=== PATIENT | female | born 1955 | race Caucasian/White ===

== ENCOUNTER 2017-02-22 13:10 | Emergency (ER) | payer BC ==
[2017-02-22] MEDS ORDERED: Sodium Chloride 0.9% 10 ML Syringe FLUSH PRN (14:08)
[2017-02-22] MEDS ORDERED: Acetaminophen/HYDROcodone 325-5 MG Tab PO ONE (14:10)
--- NOTE | 2017-02-22 14:10 | EDM.PDOC ---
[id number] CHEST PAIN Time Seen by Provider: 02/22/17 13:27 Source of Information: Reports: Patient, Family History Limitations: Reports: No Limitations - History of Present Illness INITIAL COMMENTS - FREE TEXT/NARRATIVE: Patient presents to the emergency room with left sided chest pain. It is lower part of the left side and it appears to be involving the third and fourth ribs. The patient had problems in the past with this type of pain. Her previous cardiac workups have been negative. The patient has been treated for reflux. 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: Musculoskeletal History: Reports: Fracture Other Musculoskeletal History: l wrist Dermatologic History: Reports: Eczema - Infectious Disease History Infectious Disease History: Reports: Chicken Pox, Measles, Mumps, Shingles - Past Surgical History GI Surgical History: Reports: Colonoscopy, EGD Female Surgical History: Reports: Hysterectomy Social & Family History - Tobacco Use Smoking Status *Q: Never Smoker Second Hand Smoke Exposure: No - Caffeine Use Caffeine Use: Reports: Coffee, Soda - Recreational Drug Use Recreational Drug Use: No ED ROS GENERAL - Review of Systems Review Of Systems: See Below HEENT: Reports: No Symptoms Respiratory: Reports: Pleuritic Chest Pain. Denies: Shortness of Breath, Wheezing, Cough, Sputum, Hemoptysis Cardiovascular: Reports: Chest Pain. Denies: Blood Pressure Problem, Dyspnea on Exertion, Orthopnea, Palpitations, Syncope Endocrine: Reports: No Symptoms GI/Abdominal: Reports: No Symptoms : Reports: No Symptoms Musculoskeletal: Reports: Hand Pain, Joint Pain, Joint Swelling, Muscle Stiffness Skin: Reports: Dryness, Pruritis, Erythema Neurological: Reports: Dizziness, Headache Psychiatric: Reports: Anxiety Hematologic/Lymphatic: Reports: Easy Bruising Immunologic: Reports: No Symptoms ED EXAM, GENERAL - Physical Exam Exam: See Below Exam Limited By: No Limitations General Appearance: Alert, WD/WN, No Apparent Distress Eye Exam: Bilateral Eye: Normal Inspection Ears: Normal External Exam, Normal Canal, Hearing Grossly Normal Nose: Normal Inspection Head: Atraumatic Neck: Normal Inspection, Supple Respiratory/Chest: No Respiratory Distress, Lungs Clear. No: Chest Non-Tender, Respiratory Distress, Rales, Rhonchi, Wheezing Cardiovascular: Normal Peripheral Pulses, Regular Rate, Rhythm GI/Abdominal: Normal Bowel Sounds, Non-Tender (Female) Exam: Normal External Exam Back Exam: Normal Inspection Extremities: Normal Inspection Neurological: Alert, Oriented Psychiatric: Anxious Skin Exam: Warm, Dry, Intact, Normal Color Lymphatic: No Adenopathy Course - Vital Signs Last Recorded V/S: Last Vital Signs Temp 96.8 F 02/22/17 16:20 Pulse 57 L 02/22/17 17:20 Resp 16 02/22/17 17:20 BP 126/82 02/22/17 17:20 Pulse Ox 96 02/22/17 17:20 - Orders/Labs/Meds Labs: Laboratory Tests 02/22/17 02/22/17 02/22/17 Range/Units 14:23 14:23 14:23 WBC 8.9 (4.5-11.0) K/uL RBC 4.53 (3.30-5.50) M/uL Hgb 13.2 (12.0-15.0) g/dL Hct 39.4 (36.0-48.0) % MCV 87 (80-98) fL MCH 29 (27-31) pg MCHC 34 (32-36) % Plt Count 215 (150-400) K/uL Neut % (Auto) 72 H (36-66) % Lymph % (Auto) 19 L (24-44) % [place] % (Auto) 7 H (2-6) % Eos % (Auto) 2 (2-4) % Baso % (Auto) 1 (0-1) % PT 10.9 (9.5-12.0) sec INR 1.03 (0.80-1.20) APTT 30.0 (27.0-36.0) sec Sodium 140 (140-148) mmol/L Potassium 3.7 (3.6-5.2) mmol/L Chloride 101 (100-108) mmol/L Carbon Dioxide 30 (21-32) mmol/L Anion Gap 8.9 (5.0-14.0) mmol/L BUN 22 H (7-18) mg/dL Creatinine 0.8 (0.6-1.0) mg/dL Est Cr Clr Drug Dosing 76.20 mL/min Estimated GFR (MDRD) > 60 (>60) Glucose 97 (74-106) mg/dL Calcium 8.8 (8.5-10.1) mg/dL Phosphorus 3.8 (2.5-4.9) mg/dL Magnesium 2.1 (1.8-2.4) mg/dL Total Bilirubin 0.3 (0.2-1.0) mg/dL AST 31 (15-37) U/L ALT 39 (12-78) U/L Alkaline Phosphatase 68 (46-116) U/L Creatine Kinase 89 (26-192) U/L Troponin I < 0.017 (0.000-0.056) ng/mL Total Protein 7.2 (6.4-8.2) g/dL Albumin 3.9 (3.4-5.0) g/dL Globulin 3.3 (2.3-3.5) g/dL Albumin/Globulin Ratio 1.2 (1.2-2.2) Urine Color Urine Appearance Urine pH (4.5-8.0) Ur Specific [place] (1.008-1.030) Urine Protein (NEGATIVE) mg/dL Urine Glucose (UA) (NEGATIVE) mg/dL Urine Ketones (NEGATIVE) mg/dL Urine Occult Blood (NEGATIVE) Urine Nitrite (NEGATIVE) Urine Bilirubin (NEGATIVE) Urine Urobilinogen (NORMAL) mg/dL Ur Leukocyte Esterase (NEGATIVE) Urine RBC (0-5) Urine WBC (0-5) Ur Epithelial Cells Amorphous Sediment Urine Bacteria Urine Mucus 02/22/17 Range/Units 14:45 WBC (4.5-11.0) K/uL RBC (3.30-5.50) M/uL Hgb (12.0-15.0) g/dL Hct (36.0-48.0) % MCV (80-98) fL MCH (27-31) pg MCHC (32-36) % Plt Count (150-400) K/uL Neut % (Auto) (36-66) % Lymph % (Auto) (24-44) % [place] % (Auto) (2-6) % Eos % (Auto) (2-4) % Baso % (Auto) (0-1) % PT (9.5-12.0) sec INR (0.80-1.20) APTT (27.0-36.0) sec Sodium (140-148) mmol/L Potassium (3.6-5.2) mmol/L Chloride (100-108) mmol/L Carbon Dioxide (21-32) mmol/L Anion Gap (5.0-14.0) mmol/L BUN (7-18) mg/dL Creatinine (0.6-1.0) mg/dL Est Cr Clr Drug Dosing mL/min Estimated GFR (MDRD) (>60) Glucose (74-106) mg/dL Calcium (8.5-10.1) mg/dL Phosphorus (2.5-4.9) mg/dL Magnesium (1.8-2.4) mg/dL Total Bilirubin (0.2-1.0) mg/dL AST (15-37) U/L ALT (12-78) U/L Alkaline Phosphatase (46-116) U/L Creatine Kinase (26-192) U/L Troponin I (0.000-0.056) ng/mL Total Protein (6.4-8.2) g/dL Albumin (3.4-5.0) g/dL Globulin (2.3-3.5) g/dL Albumin/Globulin Ratio (1.2-2.2) Urine Color Yellow Urine Appearance Clear Urine pH 5.0 (4.5-8.0) Ur Specific [place] 1.010 (1.008-1.030) Urine Protein Negative (NEGATIVE) mg/dL Urine Glucose (UA) Normal (NEGATIVE) mg/dL Urine Ketones Negative (NEGATIVE) mg/dL Urine Occult Blood Negative (NEGATIVE) Urine Nitrite Negative (NEGATIVE) Urine Bilirubin Negative (NEGATIVE) Urine Urobilinogen Normal (NORMAL) mg/dL Ur Leukocyte Esterase Negative (NEGATIVE) Urine RBC 0-5 (0-5) Urine WBC 0-5 (0-5) Ur Epithelial Cells Rare Amorphous Sediment Not seen Urine Bacteria Few Urine Mucus Not seen Meds: Medications Discontinued Medications Generic Name Dose Route Start Last Admin Trade Name Freq PRN Reason Stop Dose Admin Hydrocodone Bitart/Acetaminophen 2 tab 02/22/17 14:10 02/22/17 14:27 [place] 325-5 Mg PO 02/22/17 14:11 2 tab ONETIME ONE Administration Sodium Chloride 1,000 mls @ 125 mls/hr 02/22/17 14:15 02/22/17 14:21 Normal Saline IV 125 mls/hr ASDIRECTED DENG Administration Sodium Chloride 10 ml 02/22/17 14:08 Saline Flush FLUSH ASDIRECTED PRN Keep Vein Open Departure - Departure Time of Disposition: 17:06 Disposition: Home, Self-Care 01 Condition: Good Clinical Impression: Costochondritis, Reflux esophagitis Raynaud disease Qualifiers: Raynaud?s-associated gangrene presence: without gangrene Qualified Code(s): I73.00 - Raynaud's syndrome without gangrene Instructions: Indigestion, [id number], Raynaud Phenomenon, Chest Wall Pain, [id number] Referrals: PCP,None [Primary Care Provider] - Forms: ED Department Discharge Additional Instructions: Patient seen in the emergency room and evaluated for the left-sided chest wall pain involving especially the third and fourth ribs on the left. The patient has a history of Raynaud's, costochondritis and probable reflux. The patient's evaluation today failed to show cardiac injury. The patient's problems appear to be inflammation of the muscle skeletal system involving the chest wall. Patient placed on a trial of prednisone. Prednisone 20 mg daily for the first 5 days, then 10 mg daily for the next 14 days. Follow with primary care physician to review the effects of prednisone at all and the symptomatology of the chest wall pain. Disposition is to home - Problem List & Annotations (1) Costochondritis SNOMED Code(s): 33990164 Code(s): M94.0 - CHONDROCOSTAL JUNCTION SYNDROME [TIETZE] Status: Acute Priority: Medium (2) Raynaud disease SNOMED Code(s): 474800368 Code(s): I73.00 - RAYNAUD'S SYNDROME WITHOUT GANGRENE Status: Acute Priority: Medium Qualifiers: Raynaud?s-associated gangrene presence: without gangrene Qualified Code(s) : I73.00 - Raynaud's syndrome without gangrene (3) Reflux esophagitis SNOMED Code(s): 350634860 Code(s): K21.0 - GASTRO-ESOPHAGEAL REFLUX DISEASE WITH ESOPHAGITIS Status: Acute Priority: Medium - Problem List Review Problem List Initiated/Reviewed/Updated: Yes
[2017-02-22] MEDS ORDERED: Sodium Chloride 0.9% 1,000 ML IV SCH (14:15)
[2017-02-22 17:23] VITALS: BP 126/82
--- NOTE | 2017-02-25 10:32 | CR ---
Chest 2V HISTORY: No Clinical Info FINDINGS: Heart size within normal limits. Pulmonary vasculature within normal limits. No evidence f or focal consolidation or cardiopulmonary process. IMPRESSION: No radiographic evidence for acute cardiopulmonary process.
== END 2017-02-22 17:23 | disposition home or self-care (01) ==
LOC: JP.ED 13:10
DX: M94.0 Chondrocostal junction syndrome [Tietze] (principal); K21.0 Gastro-esophageal reflux disease with esophagitis; I73.00 Raynaud's syndrome without gangrene; Z90.710 Acquired absence of both cervix and uterus; Z88.8 Allergy status to other drugs, medicaments and biological substances; Z79.899 Other long term (current) drug therapy
CPT/HCPCS: 36415; 71020; 80053; 81001; 82550; 83735; 84100; 84484; 85025; 85610; 85730; 93005; 99285; A9270; J7040

== ENCOUNTER 2019-12-01 07:37 | Emergency (ER) | payer MEDICARE, BC ==
[2019-12-01 07:54] VITALS: BP 142/83; PULSE 77
--- NOTE | 2019-12-01 07:57 | EDM.PDOC ---
ED HPI GENERAL MEDICAL PROBLEM - General Chief Complaint: Upper Extremity Injury/Pain Stated Complaint: LT SHOULDER PAIN Time Seen by Provider: 12/01/19 08:05 Source of Information: Reports: Patient, Significant Other History Limitations: Reports: No Limitations - History of Present Illness Onset: Gradual Onset Date: 11/29/19 Duration: Day(s): (2), Constant Location: Reports: Upper Extremity, Left, Radiates to (Anterior chest and L arm) Quality: Reports: Ache, Dull Severity: Moderate (8/10) Improves with: Reports: None Worsens with: Denies: Breathing, Eating, Rest, Movement Context: Reports: Other (One week post endoscopy. ) Associated Symptoms: Reports: Chest Pain. 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 Left Shoulder Pain Score (Numeric/FACES): 8 - Related Data Allergies Allergy/AdvReac Type Severity Reaction Status Date / Time metronidazole [From Flagyl] Allergy Rash Verified 12/01/19 07:57 Home Meds: Home Meds Hydroxychloroquine Sulfate [Plaquenil] 200 mg PO Q48H 01/13/16 [History] Cyclobenzaprine [Flexeril] 10 mg PO TID PRN 5 Days #15 tab 12/01/19 [Rx] Omeprazole 20 mg PO DAILY 12/01/19 [History] SUMAtriptan [Imitrex] 6 mg IM ASDIRECTED PRN 12/01/19 [History] Turmeric-Turmeric 1 cap PO DAILY 12/01/19 [History] hydroCHLOROthiazide [Hydrochlorothiazide] 25 mg PO DAILY 12/01/19 [History] lisinopriL [Lisinopril] 10 mg PO DAILY 12/01/19 [History] Past Medical History HEENT History: Reports: Impaired Vision Cardiovascular History: Reports: Hypertension. 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 Denies: Congestion Mouth/Throat: Denies: Throat Swelling, Difficulty Swallowing Respiratory: Denies: Shortness of Breath, Wheezing, Pleuritic Chest Pain, Cough Cardiovascular: Reports: Chest Pain. Denies: Irregular Heart Rate, Palpitations , Syncope GI/Abdominal: Denies: Abdominal Pain Musculoskeletal: Reports: Shoulder Pain (Left) Skin: Denies: Pallor, Diaphoresis Neurological: Denies: Confusion, Headache, Trouble Speaking Psychiatric: Denies: Confusion ED EXAM, GENERAL - Physical Exam Exam: See Below Exam Limited By: No Limitations General Appearance: Alert, WD/WN, No Apparent Distress, Obese Eye Exam: Bilateral Eye: EOMI, Normal Inspection, PERRL Nose: Normal Inspection Throat/Mouth: Normal Inspection, Normal Voice, No Airway Compromise Head: Atraumatic, Normocephalic Neck: Normal Inspection, Non-Tender, Full Range of Motion Respiratory/Chest: Lungs Clear, Normal Breath Sounds, No Accessory Muscle Use, Other (tenderness on palpation of L medial scapular area) Cardiovascular: Normal Peripheral Pulses, Regular Rate, Rhythm, No Edema, No JVD , No Murmur GI/Abdominal: Soft, Non-Tender Back Exam: Normal Inspection, Muscle Spasm (on palpation just medial to L scapula) Extremities: Normal Inspection, Normal Range of Motion Neurological: Alert, Oriented Skin Exam: Warm, Dry, Intact Lymphatic: No Adenopathy EKG INTERPRETATION EKG Date: 12/01/19 Time: 08:30 Rhythm: NSR [place]: Normal P-Wave: Present QRS: Other (duration slightly prolonged @ 115ms) ST-T: Normal QT: Normal Course - Vital Signs Last Recorded V/S: Last Vital Signs Temp 35.8 C L 12/01/19 07:56 Pulse 77 12/01/19 07:56 Resp 16 12/01/19 07:56 BP 142/83 H 12/01/19 07:56 Pulse Ox 96 12/01/19 07:56 - Orders/Labs/Meds Orders: Active Orders 24 hr Category Date Time Status EKG Documentation Completion [RC] ASDIRECTED Care 12/01/19 08:18 Active EKG 12 Lead [EK] Routine Ther 12/01/19 08:16 Ordered Labs: Laboratory Tests 12/01/19 12/01/19 12/01/19 Range/Units 08:30 08:30 08:30 WBC 8.5 (4.5-11.0) K/uL RBC 4.84 (3.30-5.50) M/uL Hgb 13.9 (12.0-15.0) g/dL Hct 42.3 (36.0-48.0) % MCV 87 (80-98) fL MCH 29 (27-31) pg MCHC 33 (32-36) % Plt Count 288 (150-400) K/uL D-Dimer, Quantitative < 100 (0.0-400.0) ng/mL Sodium 141 (140-148) mmol/L Potassium 3.8 (3.6-5.2) mmol/L Chloride 102 (100-108) mmol/L Carbon Dioxide 30 (21-32) mmol/L Anion Gap 8.6 (5.0-14.0) mmol/L BUN 15 (7-18) mg/dL Creatinine 0.8 (0.6-1.0) mg/dL Est Cr Clr Drug Dosing 70.72 mL/min Estimated GFR (MDRD) > 60 (>60) Glucose 105 (74-106) mg/dL Calcium 9.1 (8.5-10.1) mg/dL Total Bilirubin 0.3 (0.2-1.0) mg/dL AST 19 (15-37) U/L ALT 29 (12-78) U/L Alkaline Phosphatase 82 (46-116) U/L Troponin I < 0.017 (0.000-0.056) ng/mL Total Protein 7.5 (6.4-8.2) g/dL Albumin 3.9 (3.4-5.0) g/dL Globulin 3.6 H (2.3-3.5) g/dL Albumin/Globulin Ratio 1.1 L (1.2-2.2) Meds: Medications Discontinued Medications Generic Name Dose Route Start Last Admin Trade Name Freq PRN Reason Stop Dose Admin Aspirin 324 mg 12/01/19 08:16 12/01/19 08:22 Aspirin PO 12/01/19 08:17 324 mg ONETIME ONE Administration Departure - Departure Time of Disposition: 09:20 Disposition: Home, Self-Care 01 Condition: Good Clinical Impression: Thoracic back pain Qualifiers: Chronicity: acute Back pain laterality: left Qualified Code(s): M54.6 - Pain in thoracic spine - Discharge Information Prescriptions: Cyclobenzaprine [Flexeril] 10 mg PO TID PRN 5 Days #15 tab PRN Reason: Muscle Spasm Instructions: Thoracic Strain, [id number] Referrals: PCP,None [Primary Care Provider] - Forms: ED Department Discharge Sepsis Event Note - Focused Exam Vital Signs: Vital Signs Temp Pulse Resp BP Pulse Ox 12/01/19 07:56 35.8 C L 77 16 142/83 H 96 12/01/19 07:53 35.8 C L 77 16 142/83 H 96 Date Exam was Performed: 12/01/19 Time Exam was Performed: 09:13 - My Orders Last 24 Hours: My Active Orders 12/01/19 08:16 EKG 12 Lead [EK] Routine 12/01/19 08:18 EKG Documentation Completion [RC] ASDIRECTED - Assessment/Plan Last 24 Hours: My Active Orders 12/01/19 08:16 EKG 12 Lead [EK] Routine 12/01/19 08:18 EKG Documentation Completion [RC] ASDIRECTED
[2019-12-01] MEDS: Aspirin 81 MG Tab.Chew PO ONE (08:22)
--- NOTE | 2019-12-01 09:05 | CRLCR ---
INDICATION: Posterior thoracic pain TECHNIQUE: Chest 2 views COMPARISON: 02/22/2017 FINDINGS: Cardiovascular and mediastinum: Heart size and vasculature are normal in caliber and appearance. Lungs and pleural spaces: Lungs are clear. No sign of infiltrate or mass. No sign of pleural effusion. No pneumothorax. Bones and soft tissues: No significant findings. IMPRESSION: No acute findings and no significant changes from the prior exam. Dictated by Logan Thomas MD @ 12/01/2019 9:03:57 AM Dictated by: Logan Thomas MD @ 12/01/2019 09:04:06 (Electronically Signed)
== END 2019-12-01 09:41 | disposition home or self-care (01) ==
LOC: JP.ED 07:37
DX: M54.6 Pain in thoracic spine (principal); K21.9 Gastro-esophageal reflux disease without esophagitis; I10 Essential (primary) hypertension; Z79.899 Other long term (current) drug therapy
CPT/HCPCS: 36415; 71046; 80053; 84484; 85027; 85379; 93005; 99283; 99285; A9270

== ENCOUNTER 2024-04-11 20:22 | Observation (INO) | payer MEDICARE, BC ==
[2024-04-11] MEDS: HYDROmorphone 1 MG/ML Syringe IM ONE ×2 (20:44→22:05)
[2024-04-11] MEDS: Ondansetron 4 MG Tab.DIS PO ONE (20:44)
[2024-04-11] MEDS ORDERED: Naloxone 0.4 MG/ML SDV IVPUSH PRN ×2 (21:58→22:25)
[2024-04-11] MEDS: Cyclobenzaprine 10 MG Tab PO ONE (22:06)
[2024-04-11] MEDS ORDERED: Ondansetron 4 MG Tab.DIS PO PRN (22:25)
[2024-04-11] MEDS ORDERED: Melatonin 3 MG Tab PO PRN (22:25)
[2024-04-11] MEDS ORDERED: Ondansetron 4 MG/2 ML SDV IV PRN (22:25)
[2024-04-11] MEDS: Sodium Chloride 0.9% 1,000 ML IV SCH (23:08)
[2024-04-11] MEDS: Pantoprazole 40 MG Tab.CR PO ONE (23:21)
[2024-04-12] MEDS: HYDROmorphone 0.5 MG/0.5 ML Syringe IVPUSH PRN (03:45)
[2024-04-12 05:06] LABS: HEMATOCRIT 30.6 % (34.3-46.0); HEMOGLOBIN 10.6 g/dL (11.2-15.5); MEAN CORPUSCULAR HEMOGLOBIN 30.8 pg (31.6-35.5); MEAN CORPUSCULAR HGB CONC 34.6 g/dL (31.6-35.5); RED BLOOD CELL COUNT 3.44 M/uL (3.77-5.24); WHITE BLOOD CELL COUNT,WBC 12.8 K/uL (3.2-11.0)
[2024-04-12 05:28] LABS: A/G RATIO 0.9 (1.2-2.2); ALANINE AMINOTRANSFERASE,ALT 23 U/L (12-78); ALBUMIN 2.9 g/dL (3.4-5.0); ALKALINE PHOSPHATASE 51 U/L (46-116); ASPARTATE AMNIOTRANSFERASE,AST 26 U/L (15-37); BILIRUBIN TOTAL 0.5 mg/dL (0.2-1.0); BLOOD UREA NITROGEN,BUN 17 mg/dL (7-18); CALCIUM 7.9 mg/dL (8.5-10.1); CARBON DIOXIDE,CO2 30 mmol/L (21-32); CHLORIDE,CL 103 mmol/L (100-108); CREATININE 0.7 mg/dL (0.6-1.0); EST CRCL DRUG DOSING (CG) 75.14 mL/min; ESTIMATED GFR 94 mL/min (>60); GLUCOSE RANDOM 143 mg/dL (74-106); POTASSIUM,K 3.8 mmol/L (3.6-5.2); PROTEIN TOTAL,TP 6.1 g/dL (6.4-8.2); SODIUM,NA 138 mmol/L (140-148)
[2024-04-12 05:36] LABS: ANION GAP 8.8 mmol/L (5.0-14.0)
[2024-04-12] MEDS ORDERED: fentaNYL 250 MCG/5 ML SDV ONE ×2 (07:37→09:35)
[2024-04-12] MEDS ORDERED: Succinylcholine 200 MG/10 ML MDV ONE (07:37)
[2024-04-12] MEDS ORDERED: Glycopyrrolate 0.2 MG/ML 5 ML MDV ONE (07:37)
[2024-04-12] MEDS ORDERED: Dexamethasone 4 MG/ML SDV ONE (07:37)
[2024-04-12] MEDS ORDERED: Neostigmine Methylsulfate 10 MG/10 ML MDV ONE (07:37)
[2024-04-12] MEDS ORDERED: Propofol 200 MG/20 ML SDV ONE (07:37)
[2024-04-12] MEDS ORDERED: Rocuronium 50 MG/5 ML Vial ONE (07:37)
[2024-04-12] MEDS ORDERED: Ondansetron 4 MG/2 ML SDV ONE (07:37)
[2024-04-12] MEDS: Pantoprazole 40 MG Vial IV ONE (07:49)
[2024-04-12] MEDS ORDERED: ceFAZolin 1 GM Vial ONE (08:25)
[2024-04-12] MEDS ORDERED: Sodium Chloride 0.9% 10 ML ONE (08:25)
[2024-04-12] MEDS: Bupivacaine 0.5% 50 ML MDV ONE (08:59)
[2024-04-12] MEDS ORDERED: oxyCODONE 5 MG Tab PO PRN (11:30)
[2024-04-12] MEDS: oxyCODONE 5 MG Tab PO PRN (11:40)
[2024-04-12] MEDS: Acetaminophen 325 MG Tab PO PRN (15:13)
[2024-04-13] MEDS: atorvaSTATin 10 MG Tab PO SCH (10:04)
[2024-04-13] MEDS: Sertraline 25 MG Tab PO SCH (10:04)
[2024-04-13] MEDS: Hydroxychloroquine 200 MG Tab PO SCH (10:04)
[2024-04-13] MEDS: Famotidine 20 MG Tab PO SCH (10:04)
[2024-04-13] MEDS: Anastrozole 1 MG Tab PO SCH (10:04)
[2024-04-13 11:55] VITALS: BP 134/66; PULSE 77
== END 2024-04-13 13:54 | disposition home or self-care (01) ==
LOC: JP.ED 20:22 → JP.MS 22:02
PROVIDERS: ADMIT Registered Nurse; ATTEND Specialist
DX: S42.211A Unspecified displaced fracture of surgical neck of right humerus, initial encounter for closed fracture (principal); M35.00 Sjogren syndrome, unspecified; I10 Essential (primary) hypertension; C50.919 Malignant neoplasm of unspecified site of unspecified female breast; K21.9 Gastro-esophageal reflux disease without esophagitis; Z88.8 Allergy status to other drugs, medicaments and biological substances; Z87.891 Personal history of nicotine dependence; Z79.899 Other long term (current) drug therapy; W17.89XA Other fall from one level to another, initial encounter
CPT/HCPCS: 01740; 23615; 36415; 73030; 73060; 80053; 85027; 96361; 96372; 96374; 96375; 97110; 97161; 99222; 99232; 99238; 99283; 99284; A9270; C1713; C1776; G0378; J0330; J0665; J0690; J1100; J1170; J1596; J2405; J2470; J2704; J2710; J3010; J3490; J7030; Q0162

== ENCOUNTER 2025-07-25 02:39 | Emergency (ER) | payer MEDICARE, BC ==
[2025-07-25 03:46] LABS: BASOPHILS ABSOLUTE AUTO 0.07 K/uL (0.00-0.10); BASOPHILS PERCENT AUTO 0.7 % (0.1-1.3); EOSINOPHILS ABSOLUTE AUTO 0.24 K/uL (0.00-0.40); EOSINOPHILS PERCENT AUTO 2.4 % (0.0-5.4); IMMATURE GRAN ABSOLUTE AUTO 0.02 K/uL (0.00-0.23); IMMATURE GRAN PERCENT AUTO 0.2 % (0.0-0.7); LYMPHOCYTES ABSOLUTE AUTO 3.66 K/uL (0.8-3.3); LYMPHOCYTES PERCENT AUTO 36.1 % (11.4-47.7); MONOCYTES ABSOLUTE AUTO 0.97 K/uL (0.20-0.90); MONOCYTES PERCENT AUTO 9.6 % (3.3-12.6); NEUTROPHILS ABSOLUTE AUTO 5.19 K/uL (1.0-7.6); NEUTROPHILS PERCENT AUTO 51.0 % (40.0-78.1); PLATELET COUNT,PLT 330 K/uL (130-375); RED BLOOD CELL COUNT 3.90 M/uL (3.77-5.24); WHITE BLOOD CELL COUNT,WBC 10.2 K/uL (3.2-11.0)
[2025-07-25 03:48] LABS: BLOOD UREA NITROGEN,BUN 21.0 mg/dL (7-18); CARBON DIOXIDE,CO2 27.0 mmol/L (21-32); CHLORIDE,CL 103.0 mmol/L (100-108); CREATININE 0.8 mg/dL (0.6-1.0); EST CRCL DRUG DOSING (CG) 62.72 mL/min; ESTIMATED GFR 79.0 mL/min (>60); GLUCOSE RANDOM 111.0 mg/dL (74-106); POTASSIUM,K 4.0 mmol/L (3.6-5.2); SODIUM,NA 138.0 mmol/L (140-148); TROPONIN I HIGH SENSITIVITY 6.4 pg/mL (<=60.3)
[2025-07-25 04:23] VITALS: BP 124/69; PULSE 56
== END 2025-07-25 04:10 | disposition home or self-care (01) ==
LOC: JP.ED 02:39
DX: M62.838 Other muscle spasm (principal); I10 Essential (primary) hypertension; K21.9 Gastro-esophageal reflux disease without esophagitis; Z90.710 Acquired absence of both cervix and uterus; Z88.8 Allergy status to other drugs, medicaments and biological substances; Z79.899 Other long term (current) drug therapy
CPT/HCPCS: 36415; 80048; 84484; 85025; 93005; 99284